=== PATIENT | female | born 1985 | race Caucasian/White ===

== ENCOUNTER 2019-11-23 11:59 | Emergency (ER) | payer OTHER, BC ==
[~2019-11-23] VITALS: Ht 167.6 cm; Wt 63.5 kg
== END 2019-11-23 13:06 | disposition home or self-care (01) ==
LOC: ED 11:59
DX: M79.632 Pain in left forearm (principal)
CPT/HCPCS: 29125; 73090; 99283-25

== ENCOUNTER 2019-11-29 15:04 | Emergency (ER) | payer OTHER, BC ==
[~2019-11-29] VITALS: Ht 167.6 cm; Wt 65.8 kg
--- OUTSIDE RECORDS SUMMARY | 2019-11-29 15:06 | XMS ---
PreManage Notification: ROSALVA PERAZA [employer] Events No recent Security Events currently on file CRITERIA MET - [facility] - 2 Visits in 30 Days CARE PROVIDERS There are no care providers on record at this time. Holli has no Care Guidelines for this patient. [facility]12 MO.) [facility] NOTE: Visits indicate total known visits. ED/C VISIT TRACKING (12 MO.) 11/29/2019 15:[address] [facility] [place] TYPE: Emergency COMPLAINT: - L FOREARM PAIN 11/23/2019 12:00 [facility] TYPE: Emergency COMPLAINT: - L FOREARM INJURY DIAGNOSES: - Pain in left forearm - Pain in left forearm INPATIENT VISIT TRACKING (12 MO.) No inpatient visits to display in this time frame [email or web address]
[2019-11-29] MEDS ORDERED: ADVIL200 MG PO (15:26)
== END 2019-11-29 17:10 | disposition home or self-care (01) ==
LOC: ED 15:04
DX: S56.912A Strain of unspecified muscles, fascia and tendons at forearm level, left arm, initial encounter (principal); M77.9 Enthesopathy, unspecified; F17.200 Nicotine dependence, unspecified, uncomplicated; Z88.0 Allergy status to penicillin; X58.XXXA Exposure to other specified factors, initial encounter
CPT/HCPCS: 99283

== ENCOUNTER 2020-10-03 10:33 | Emergency (ER) | payer OTHER, BC ==
[~2020-10-03] VITALS: Ht 167.6 cm; Wt 65.8 kg
[~2020-10-03 10:33] MED LIST: ADVIL200 MG PO
[2020-10-03] MEDS ORDERED: LIDODERM1 EACH TD (11:00)
[2020-10-03] MEDS ORDERED: ATIVAN1 MG PO (11:00)
[2020-10-03] MEDS ORDERED: NAPROSYN500 MG PO (11:00)
== END 2020-10-03 11:12 | disposition home or self-care (01) ==
LOC: ED 10:33
DX: S39.012A Strain of muscle, fascia and tendon of lower back, initial encounter (principal); X50.9XXA Other and unspecified overexertion or strenuous movements or postures, initial encounter; Y99.0 Civilian activity done for income or pay; F17.200 Nicotine dependence, unspecified, uncomplicated; Z88.0 Allergy status to penicillin
CPT/HCPCS: 99283